=== PATIENT | female | born 1980 | race Caucasian/White ===

== ENCOUNTER 2021-12-19 16:10 | Emergency (ER) | payer OTHER ==
[~2021-12-19 16:10] MED LIST: BUTRANS1 EAC1 TOP; CLARITIN10 MG PO; FIORICET1 EACH PO; LIDOCAINE30 G1 TOP; MELOXICAM15 MG PO; MORPHINE SULFAT30 M1 PO; MORPHINE SULFAT30 M3 PO; MS CONTIN15 M1 PO; MS CONTIN15 MG PO; MS CONTIN30 M1 PO; MS CONTIN30 MG PO; NARCAN4 MG; NORCO 5-325 TA1 EACH PO; OXYCODON-ACETA1 EAC1 PO; PERCOCET 7.5/321 TAB PO; PHENERGAN25 M1 PO; TOPAMAX100 MG PO; ZOFRAN4 MG PO
[2021-12-19 19:39] LABS: BASOPHIL 0.7 % (0-2); HCT 43.3 % (37.0-47.0); HGB 14.3 g/dl (12.5-16.0); LYMPHOCYTE 25.1 % (15-48); MCH 30.4 pg (25.0-31.0); MCV 92.1 fL (78.0-100.0); MONOCYTE 6.4 % (0-12); MPV 9.4 fL (6.0-9.5); NEUTROPHIL 66.4 % (41-80); NRBC 0; PLT 321 K/uL (150-400); RDW 12.7 % (11.5-14.0); WBC 11.2 K/uL (4.0-10.5)
[2021-12-19 19:58] LABS: BUN/CREAT RATIO (CALC) 11.2 RATIO; CREATININE 0.89 mg/dL (0.51-0.95); POTASSIUM 3.9 mmol/L (3.5-5.1)
== END 2021-12-19 23:36 | disposition home or self-care (01) ==
LOC: FER 16:10
PROVIDERS: Nurse Practitioner Family
DX: G43.909 Migraine, unspecified, not intractable, without status migrainosus (principal)
CPT/HCPCS: 36415; 80048; 85025; J1100; J1170; J1200; J1885; J2405; J7030; Q0169